=== PATIENT | female | born 1980 | race African-American/Black ===

== ENCOUNTER 2017-10-03 02:14 | Emergency (ER) | payer OTHER ==
[~2017-10-03] VITALS: Ht 170.2 cm; Wt 94.3 kg
[2017-10-03] MEDS ORDERED: POTASSIUM CHLO20 ME2 ORAL (02:25)
[2017-10-03] MEDS ORDERED: LOSARTAN POTAS100 MG ORAL (02:25)
[2017-10-03] MEDS ORDERED: FUROSEMIDE80 M1 ORAL (02:25)
[2017-10-03] MEDS ORDERED: SERTRALINE HCL25 MG ORAL (02:25)
[2017-10-03 02:30] VITALS: BP 157/87
[2017-10-03] MEDS ORDERED: CILOXAN 0.3% O1 DROP BOTH EYES (02:50)
--- NOTE | 2017-10-03 02:59 | Emergency Room Report ---
History of Present Illness General Chief Complaint: Eye Problems Source: Patient Present Illness HPI 37-year-old female no significant past medical history presenting with bilateral eye pain redness tearing. Patient states that her niece had bilateral conjunctivitis few days ago. Complains of thick yellow discharge coming from her eyes. Increased tearing. Irritation and pain. Patient is contact lens user Allergies: Coded Allergies: No Known Allergies (Unverified , 10/03/17) Patient History Past Medical History: see triage record Past Surgical History: none Pertinent Family History: none Last Menstrual Period: 09/18/17 Reviewed Nursing Documentation: PMH: Agreed, PSxH: Agreed Review of Systems All Other Systems: negative except mentioned in HPI Physical Exam Vital Signs Date Time Temp Pulse Resp B/P (MAP) Pulse Ox O2 Delivery O2 Flow Rate FiO2 10/03/17 02:17 98.1 90 18 157/87 99 Room Air Sp02 EP Interpretation: reviewed, normal General Appearance: normal inspection, well appearing, no apparent distress, alert, GCS 15, non-toxic Head: normocephalic, atraumatic Eyes: bilateral eye PERRL, bilateral eye EOMI, bilateral eye other - Bilateral scleral injection, bilateral chemosis, yellow discharge coming from eye bilaterally ENT: normal ENT inspection, normal pharynx, normal voice, moist mucus membranes Neck: normal inspection, full range of motion, supple Respiratory: normal inspection, lungs clear, normal breath sounds, no respiratory distress, no retraction, no wheezing, speaking full sentences, chest symmetrical Cardiovascular #1: normal inspection, regular rate, rhythm, normal capillary refill Cardiovascular #2: 2+ radial (R), 2+ radial (L) Gastrointestinal: normal inspection, non tender, soft Musculoskeletal: normal inspection, back normal, normal range of motion, non- tender Neurologic: normal inspection, alert, oriented x3, responsive, motor strength/ tone normal, sensory intact, normal gait, speech normal Psychiatric: normal inspection, judgement/insight normal, memory normal Skin: normal inspection, normal color, no rash, warm/dry, well hydrated, normal turgor Medical Decision Making Diagnostic Impression: Primary Impression: Bacterial conjunctivitis of both eyes ER Course 37-year-old female with bilateral eye discharge and redness and pain DDX: Bacterial conjunctivitis Plan: None in the emergency room ER course: Patient has remained stable during ED stay. Disposition: Patient is to be discharged to home. Prescriptions given are ciprofloxacin drops Patient is instructed to follow up with their primary care doctor within 5 days. Strict return precautions discussed with patient such as fever, chills, worsening/severe pain, nausea, vomiting, which may indicate severe illness. Patient verbalizes understanding and agrees with plan. Please note that this Emergency Department Report was dictated using Done In :[employer] technology software, occasionally this can lead to erroneous entry secondary to interpretation by the dictation equipment Last Vital Signs Date Time Temp Pulse Resp B/P (MAP) Pulse Ox O2 Delivery O2 Flow Rate FiO2 10/03/17 02:30 98.1 18 157/87 99 Room Air 10/03/17 02:17 90 Disposition: HOME, SELF-CARE Scripts Ciprofloxacin (Ciprofloxacin HCl) 2.5 Ml Drops 2 DROP BOTH EYES QID for 7 Days, #1 TUBE 0 Refills Prov: Nuvia Funez M.D. 10/03/17 Patient Instructions: Bacterial Conjunctivitis Nuvia Funez M.D. Oct 03, 2017 02:59
[2017-10-03 03:00] VITALS: BP 157/87
== END 2017-10-03 02:59 | disposition home or self-care (01) ==
LOC: EMR 02:40
DX: H10.89 Other conjunctivitis (principal); B96.89 Other specified bacterial agents as the cause of diseases classified elsewhere
CPT/HCPCS: 99283